=== PATIENT | male | born 1950 | race Two or more races ===

== ENCOUNTER 2018-12-10 15:51 | Outpatient (CLI) | payer OTHER | END 2018-12-10 16:03 | disposition home or self-care (01) | LOC: LAB 15:51 | DX: N40.0 Benign prostatic hyperplasia without lower urinary tract symptoms (principal) ==

== ENCOUNTER 2019-04-01 15:12 | Outpatient (CLI) | payer OTHER | END 2019-04-01 15:22 | disposition home or self-care (01) | LOC: LAB 15:12 | DX: C61 Malignant neoplasm of prostate (principal); D50.8 Other iron deficiency anemias; D51.8 Other vitamin B12 deficiency anemias; I10 Essential (primary) hypertension; R97.0 Elevated carcinoembryonic antigen [CEA]; R97.21 Rising PSA following treatment for malignant neoplasm of prostate ==

== ENCOUNTER → 2019-04-09 | Outpatient (CLI) | payer OTHER | END | disposition home or self-care (01) | LOC: NUCLEAR 04-06 09:00 | DX: C61 Malignant neoplasm of prostate (principal) | CPT/HCPCS: 78320; 78306; A9503 ==

== ENCOUNTER 2019-04-21 14:39 | Outpatient (CLI) | payer OTHER | END 2019-04-21 14:43 | disposition home or self-care (01) | LOC: LAB 14:39 | DX: C61 Malignant neoplasm of prostate (principal) ==

== ENCOUNTER 2019-10-04 12:29 | Outpatient (CLI) | payer OTHER | END 2019-10-04 12:36 | disposition home or self-care (01) | LOC: LAB 12:29 | DX: C63.7 Malignant neoplasm of other specified male genital organs (principal) ==

== ENCOUNTER → 2020-01-03 12:23 | Outpatient (CLI) | payer OTHER | END | disposition home or self-care (01) | LOC: LAB 12:23 | DX: N40.0 Benign prostatic hyperplasia without lower urinary tract symptoms (principal) ==